=== PATIENT | female | born 2005 | race Two or more races ===

== ENCOUNTER 2023-12-05 21:52 | Emergency (ER) | payer MEDICAID, OTHER ==
[~2023-12-05] VITALS: Ht 147.3 cm; Wt 49.9 kg
[2023-12-05 22:07] VITALS: TEMP 98.1
[2023-12-05] MEDS ORDERED: IBUPROFEN 600 MG TABLET ONE (23:04)
[2023-12-05] MEDS: IBUPROFEN 600 MG TABLET PO ONE (23:07)
[2023-12-05 23:54] VITALS: BP 119/71; O2SAT 97
== END 2023-12-05 23:55 ==
LOC: ER 21:54
DX: S09.8XXA Other specified injuries of head, initial encounter (principal); M79.641 Pain in right hand; Y04.0XXA Assault by unarmed brawl or fight, initial encounter; Y93.89 Activity, other specified; Y92.89 Other specified places as the place of occurrence of the external cause; Y99.8 Other external cause status
CPT/HCPCS: 73130-TC